=== PATIENT | female | born 1955 | race Caucasian/White ===

== ENCOUNTER 2021-08-06 14:54 | Emergency (ER) | payer MEDICARE, SELFPAY ==
--- NOTE | ~2021-08-06 | XR_ITS ---
EXAMINATION: XR foot LT min 3V DATE: 08/06/2021 15:21 INDICATION: Left foot pain TECHNIQUE: Dorsoplantar, lateral, and 2 oblique views of the left foot were obtained. COMPARISON: None. FINDINGS: There is surgical fusion of the second and third proximal middle phalanges. An orthopedic s crew traverses a healed fracture of the first metatarsal. No acute fracture is identified. There is d orsal soft tissue swelling of the foot. IMPRESSION: 1. No acute osseous abnormality. Reviewed, dictated and finalized at location B. [facility] [employer]
[2021-08-06 15:05] VITALS: BP 155/65; PULSE 99; RESP 20; TEMP 37.1; O2SAT 100
--- NOTE | 2021-08-06 15:09 | ED.LOWEXIN ---
HPI - Extremity Injury (Lower) General Chief Complaint: Extremity Injury, Lower Stated Complaint: left foot pain Time Seen by Provider: 08/06/21 15:10 Source: patient Mode of arrival: ambulatory Limitations: no limitations History of Present Illness HPI Narrative: 66 yo F presents with c/o pain to L foot for 4 days. No injury. States she wore uncomfortable shoes that were too tight on Tuesday. Pain started the next day. Reports swelling in foot that extend into L ankle. Pain worse when bearing weight. Hx of bunion surgery and pins to 2nd, 3rd and 4th toes for hammertoe. Taking advil with little relief of pain. States pain seems similar to when she had fracture to R foot. All systems reviewed and negative except as noted above. Related Data Home Medications Medication Instructions Recorded Confirmed aripiprazole mg 08/06/21 famotidine [Pepcid] 08/06/21 furosemide [Lasix] 08/06/21 indomethacin 08/06/21 lisinopril 08/06/21 lorazepam 08/06/21 omeprazole 08/06/21 rosuvastatin mg 08/06/21 sucralfate 08/06/21 vortioxetine [Trintellix] mg 08/06/21 Allergies Allergy/AdvReac Type Severity Reaction Status Date / Time Sulfa (Sulfonamide Allergy Rash Verified 08/06/21 15:25 Antibiotics) Review of Systems Review of Systems: CONSTITUTIONAL: Denies fever, chills, or sweats. EYES: Denies visual changes, redness, or discharge. ENT: Denies rhinorrhea, congestion, sore throat, or otalgia. CARDIOVASCULAR: Denies chest pain, palpitations, or edema. RESPIRATORY: Denies cough or dyspnea. GASTROINTESTINAL: Denies abdominal pain, nausea, vomiting, or diarrhea. GENITOURINARY: Denies dysuria or hematuria. SKIN: Denies rash or itching. MUSCULOSKELETAL: Denies back pain, joint pain, or myalgia. Pain and swelling to left foot. NEUROLOGIC: Denies headache, numbness, or weakness. PSYCHIATRIC: Denies anxiety or depression. All other systems reviewed are negative, except as documented in HPI. PMFSH Comments At time of signature, agree with nursing past medical, surgical, social and family history. There is no relevant family history pertinent to the presenting complaint. Exam Narrative: GENERAL: This is a well-nourished, well-developed patient, in no apparent distress. HEAD: normocephalic, atraumatic. EYES: PERRL. Sclera clear/white. Vision is grossly intact. EARS: External ears normal, auditory canals clear and without drainage, TMs normal without perforation. Hearing grossly intact. NOSE: External nose normal with no obvious nasal discharge, nares without redness, no rhinorrhea. THROAT: Mucous membranes moist, posterior pharynx clear. NECK: Neck supple, non-tender without lymphadenopathy, masses or thyromegaly. CARDIOVASCULAR: Regular rate and rhythm without murmurs, gallops, or rubs. RESPIRATORY: Clear to auscultation. Breath sounds equal bilaterally. No wheezes, rales, or rhonchi. GASTROINTESTINAL: Abdomen soft, non-tender, nondistended. Bowel sounds are active. No hepato-splenomegaly, or palpable masses. No guarding. SKIN: warm, Dry, intact with no suspicious lesions or rash, good texture and turgor. NEURO: awake, alert, and oriented to person, place and time. There were no obvious focal neurologic abnormalities. EXTREMITIES: mild swelling to L foot extending into ankle. There is tenderness to distal aspect 2nd to 4th metatarsal. pain is worse when toes are flexed. There is no bruising. There is no redness, wound to skin concerning for infection. BACK: Nontender without deformity. No CVA tenderness. Course Course Level of Care: Express Care Visit Vital Signs Vital signs: Vital Signs Temperature 37.1 C 08/06/21 15:05 Pulse Rate 99 08/06/21 15:05 Respiratory Rate 20 08/06/21 15:05 Blood Pressure 155/65 H 08/06/21 15:05 Pulse Oximetry 100 08/06/21 15:05 Temperature 37.1 C 08/06/21 15:05 Pulse Rate 99 08/06/21 15:05 Respiratory Rate 20 08/06/21 15:05 Blood Pressure 155/65 H 08/06/21 15:05
--- NOTE | 2021-08-06 16:05 | PC.NURSE ---
Ice applies after xray and elevated on stool
== END 2021-08-06 15:51 | disposition home or self-care (01) ==
PROVIDERS: Emergency Provider Nurse Practitioner Family
DX: S96.912A Strain of unspecified muscle and tendon at ankle and foot level, left foot, initial encounter (principal); X58.XXXA Exposure to other specified factors, initial encounter; E78.00 Pure hypercholesterolemia, unspecified; I10 Essential (primary) hypertension; K21.9 Gastro-esophageal reflux disease without esophagitis; M81.0 Age-related osteoporosis without current pathological fracture
CPT/HCPCS: 73630; 99203; G0463